=== PATIENT | female | born 1995 | race African-American/Black ===

== ENCOUNTER 2019-04-10 07:49 | Emergency (ER) | payer SELFPAY ==
[~2019-04-10] VITALS: Ht 167.6 cm; Wt 59.0 kg
[2019-04-10 07:54] VITALS: BP 155/100
[2019-04-10] MEDS ORDERED: AMOX500C PO (08:08)
--- NOTE | 2019-04-10 08:09 | PHYS DOC ---
Adult General Chief Complaint Chief Complaint: SORE THROAT HPI HPI Patient is a 23 year old female presented ER today for evaluation sore throat since yesterday. Patient denies any fever or chill. Patient says she has history of recurrent strep pharyngitis. She denies any chest pain, no trouble breathing, no nausea vomiting, no abdominal pain. She denies any headache or neck pain. aLL OTHER ros IS NEGATIVE UNLESS OTHERWISE NOTED IN hpi Review of Systems Review of Systems See above Allergies Allergies Allergies Coded Allergies Type Severity Reaction Last Updated Verified No Known Drug Allergies 04/10/19 No Physical Exam Physical Exam See above Constitutional: Well developed, well nourished, no acute distress, non-toxic appearance. [] HENT: Normocephalic, atraumatic, bilateral external ears normal, oropharynx IS ERYTHEMATOUS, , no oral exudates, nose normal. UVULA MIDLINE. Eyes: PERRLA, EOMI, conjunctiva normal, no discharge. [] Neck: Normal range of motion, no tenderness, supple, no stridor. [] Cardiovascular:Heart rate regular rhythm, no murmur [] Lungs & Thorax: Bilateral breath sounds clear to auscultation [] Abdomen: Bowel sounds normal, soft, no tenderness, no masses, no pulsatile masses. [] Skin: Warm, dry, no erythema, no rash. [] Back: No tenderness, no CVA tenderness. [] Extremities: No tenderness, no cyanosis, no clubbing, ROM intact, no edema. [] Neurologic: Alert and oriented X 3, normal motor function, normal sensory function, no focal deficits noted. [] Psychologic: Affect normal, judgement normal, mood normal. [] Current Patient Data Vital Signs Vital Signs Date Time Temp Pulse Resp B/P (MAP) Pulse Ox O2 Delivery O2 Flow Rate FiO2 04/10/19 07:54 98.6 105 20 155/100 (118) 96 98.6 Lab Values Laboratory Tests Test 04/10/19 08:06 POC Urine HCG, Qualitative Hcg negative (Negative) EKG EKG [] Radiology/Procedures Radiology/Procedures [] Course & Med Decision Making Course & Med Decision Making Pertinent Labs and Imaging studies reviewed. (See chart for details) [] Dragon Disclaimer Dragon Disclaimer This electronic medical record was generated, in whole or in part, using a voice recognition dictation system. Departure Departure Impression: Primary Impression: Acute pharyngitis Disposition: HOME, SELF-CARE Condition: STABLE Referrals: NO PCP (PCP) FOLLOW UP WITH YOUR DOCTOR NEXT WEEK. Patient Instructions: Viral and Bacterial Pharyngitis Additional Instructions: Thank you for visiting our Emergency Department. We appreciate you trusting us with your care. If any additional problems come up don't hesitate to return to visit us. Please follow up with your primary care provider so they can plan additional care if needed and know about the problem that you had. If symptoms worsen come back to the Emergency Department. Any concerning symptoms that start such as chest pain, shortness of air, weakness or numbness on one side of the body, running high fevers or any other concerning symptoms return to the ER. Scripts Amoxicillin (AMOXICILLIN) 500 Mg Capsule 1 CAP PO TID, #30 CAP Prov: KATINA DIETZ DO 04/10/19 KATINA DIETZ DO Apr 10, 2019 08:09
== END 2019-04-10 08:14 | disposition home or self-care (01) ==
LOC: ER 07:49
DX: J02.9 Acute pharyngitis, unspecified (principal); L53.9 Erythematous condition, unspecified
CPT/HCPCS: 81025; 99283